=== PATIENT | female | born 1960 | race Caucasian/White ===

== ENCOUNTER 2020-01-30 05:25 | Emergency (ER) | payer OTHER ==
[2020-01-30 06:56] LABS: Basophils % 0.3 % (0-1.3); Hematocrit 45.7 % (36.0-45.0); Lymphocytes % 5.9 % (15.3-44.8); MPV 9.2 fL (7.6-11.3); RBC Red Blood Cell Count 4.76 M/uL (3.86-4.86)
[2020-01-30 07:21] LABS: ALT/SGPT 32 U/L (12-78); AST/SGOT 25 U/L (15-37); Albumin 3.9 g/dL (3.4-5.0); Alkaline Phosphatase 115 U/L (45-117); BUN Blood Urea Nitrogen 14 mg/dL (7-18); Bicarbonate 26 mmol/L (21-32); Bilirubin Direct < 0.1 mg/dL (0-0.2); Bilirubin Total 0.4 mg/dL (0.2-1.0); Glucose Level 110 mg/dL (74-106); Magnesium 2.3 mg/dL (1.8-2.4); NT PRO-BNP 51 pg/mL (<125); Potassium 3.6 mmol/L (3.5-5.1); Protein, Total 7.5 g/dL (6.4-8.2); Sodium Level 140 mmol/L (136-145); Troponin (Emerg Dept Use Only) < 0.02 ng/mL (0.0-0.045)
[2020-01-30 07:53] LABS: Protime INR 0.94
--- NOTE | 2020-01-30 08:18 | RAD REPORT ---
EXAM DESCRIPTION: CT - Abdomen Pelvis W Contrast - 01/30/2020 7:48 am CLINICAL HISTORY: ABD PAIN COMPARISON: No comparisons TECHNIQUE: Biphasic, helical CT imaging of the abdomen and pelvis was performed following 100 ml non -ionic IV contrast. No oral contrast given. All CT scans are performed using dose optimization technique as appropriate and may include automated exposure control or mA/KV adjustment according to patient size. FINDINGS: No suspicious findings in the lung bases. The liver, spleen, and pancreas show no suspicious findings. Two small 6 mm gallstones are present. N o active gallbladder process seen. No duct stone or biliary tree dilatation. Symmetric renal function is seen with no hydronephrosis or suspicious renal mass. No pyelonephritis o r acute parenchymal process. No bladder abnormalities. No adrenal abnormalities. Uterus and ovaries s how no suspicious findings. No dilated bowel loops or bowel wall thickening. Left-sided colonic diverticulosis is minimal. No radha dence for appendicitis. No free air, free fluid or inflammatory stranding. No hernia, mass or bulky lymphadenopathy. No suspicious bony findings. IMPRESSION: Contrast enhanced CT abdomen and pelvis showing no acute or emergent finding finding. Cholelithiasis without active gallbladder or biliary tree finding.
--- NOTE | 2020-01-30 08:31 | EDPHYS ---
Physician Documentation [facility] Name: Sanjuana Millan Age: 59 yrs Sex: Female : 1960 Arrival Date: 01/30/2020 Time: 05:26 Bed 20 Private MD: ED Physician Antony Perry HPI: 01/29 06:29 This 59 yrs old Female presents to ER via EMS with complaints of Dizziness, kb diarrhea. 06:30 The patient presents to the emergency department with diarrhea, abdominal pain. Onset: kb The symptoms/episode began/occurred this morning. Possible causes: ate wheat. The symptoms are aggravated by nothing. The symptoms are alleviated by nothing. Associated signs and symptoms: Pertinent positives: abdominal pain, diarrhea, dizziness, weakness. Severity of symptoms: At their worst the symptoms were moderate in the emergency department the symptoms have improved markedly. The patient has not experienced similar symptoms in the past. The patient has not recently seen a physician. Pt reports she ate wheat last night, which she normally doesn't do because she has a reaction to it, and then she felt a knot in her stomach. She got up from bed to use the restroom and felt dizzy, had an episode of diarrhea and felt weak. States she is feeling better now, denies dizziness. States "I feel stronger now and my stomach only feels like a little knot now." . Historical: - Allergies: 05:39 Wheat/glutens; bb - Home Meds: 05:39 None [Active]; bb - PMHx: 05:39 Celiac's Disease; bb - PSHx: 05:39 oophorectomy; Tonsillectomy; bb - Immunization history:: Adult Immunizations up to date. - Social history:: Smoking status: Patient denies any tobacco usage or history of. Patient uses alcohol, occasionally. Patient/guardian denies using street drugs. ROS: 06:28 Constitutional: Negative for fever, chills, and weight loss, Cardiovascular: Negative kb for chest pain, palpitations, and edema, Respiratory: Negative for shortness of breath, cough, wheezing, and pleuritic chest pain, Back: Negative for injury and pain, : Negative for injury, bleeding, discharge, and swelling, MS/Extremity: Negative for injury and deformity, Skin: Negative for injury, rash, and discoloration. 06:28 Abdomen/GI: Positive for abdominal pain, diarrhea, Negative for nausea and vomiting. 06:28 Neuro: Positive for dizziness, weakness. Exam: 06:28 Constitutional: This is a well developed, well nourished patient who is awake, alert, kb and in no acute distress. Head/Face: Normocephalic, atraumatic. Chest/axilla: Normal chest wall appearance and motion. Nontender with no deformity. No lesions are appreciated. Cardiovascular: Regular rate and rhythm with a normal S1 and S2. No gallops, murmurs, or rubs. Normal PMI, no JVD. No pulse deficits. Respiratory: Lungs have equal breath sounds bilaterally, clear to auscultation and percussion. No rales, rhonchi or wheezes noted. No increased work of breathing, no retractions or nasal flaring. Abdomen/GI: Soft, non-tender, with normal bowel sounds. No distension or tympany. No guarding or rebound. No evidence of tenderness throughout. Skin: Warm, dry with normal turgor. Normal color with no rashes, no lesions, and no evidence of cellulitis. MS/ Extremity: Pulses equal, no cyanosis. Neurovascular intact. Full, normal range of motion. Neuro: Awake and alert, GCS 15, oriented to person, place, time, and situation. Cranial nerves II-XII grossly intact. Motor strength 5/5 in all extremities. Sensory grossly intact. Cerebellar exam normal. Normal gait. Vital Signs: 05:30 BP 140 / 85; Pulse 79; Resp 14; Temp 97.4; Pulse Ox 96% ; Pain 0/10; fu 05:36 BP 128 / 83; Pulse 78; Resp 14 S; Temp 98.2(O); Pulse Ox 96% on R/A; Weight 72.57 kg bb (R); Height 5 ft. 2 in. (157.48 cm) (R); Pain 0/10; 07:30 BP 157 / 98; Pulse 84; Resp 18; Pulse Ox 100% on R/A; em 05:36 Body Mass Index 29.26 (72.57 kg, 157.48 cm) bb MDM: 06:04 Patient medically screened. kb 06:29 Data reviewed: vital signs, nurses notes. Data interpreted: Pulse oximetry: on room air kb is 96 %. Interpretation: normal. 08:27 Counseling: I had a detailed discussion with the patient and/or guardian regarding: the kb historical points, exam findings, and any diagnostic results supporting the discharge/admit diagnosis, lab results, radiology results, the need for outpatient follow up, a family practitioner, to return to the emergency department if symptoms worsen or persist or if there are any questions or concerns that arise at home. 08:29 ED course: Pt reports she is feeling better. kb 01/29 06:18 Order name: Basic Metabolic Panel; Complete Time: 07:22 kb 01/29 06:18 Order name: CBC with Diff kb 01/29 06:18 Order name: LFT's; Complete Time: 07:22 kb 01/29 06:18 Order name: Magnesium; Complete Time: 07:22 kb 01/29 06:18 Order name: NT PRO-BNP; Complete Time: 07:22 kb 01/29 06:18 Order name: PT-INR; Complete Time: 07:55 kb 01/29 06:18 Order name: Troponin (emerg Dept Use Only); Complete Time: 07:22 kb 01/29 06:18 Order name: EKG; Complete Time: 06:46 kb 01/29 06:18 Order name: Cardiac monitoring; Complete Time: 06:19 kb 01/29 06:18 Order name: EKG - Nurse/Tech; Complete Time: 06:19 kb 01/29 06:18 Order name: IV Saline Lock; Complete Time: 06:38 kb 01/29 06:18 Order name: Labs collected and sent; Complete Time: 06:38 kb 01/29 06:18 Order name: O2 Per Protocol; Complete Time: 06:20 kb 01/29 07:12 Order name: CT Abd/Pelvis - IV Contrast Only; Complete Time: 08:24 kb 01/29 06:18 Order name: O2 Sat Monitoring; Complete Time: 06:20 kb 01/29 07:03 Order name: Labs - recollect needed: recollect blue top. not filled; Complete Time: bd 07:27 Administered Medications: No medications were administered Disposition: 01/30/20 08:30 Discharged to Home. Impression: Diarrhea, unspecified, Dizziness and giddiness - resolved. - Condition is Stable. - Discharge Instructions: Diarrhea, Adult, [id number], Dizziness, [id number]. - Medication Reconciliation Form, Thank You Letter, Antibiotic Education, Prescription Opioid Use form. - Follow up: Emergency Department; When: As needed; Reason: Worsening of condition. Follow up: Private Physician; When: 2 - 3 days; Reason: Recheck today's complaints, Continuance of care, Re-evaluation by your physician. Signatures: Dispatcher [employer] EDMS JeovannyLeftyMaryellen, INSPECTOR WEIGHTS AND MEASURES-C INSPECTOR WEIGHTS AND MEASURES-Ckb Erin Loaiza Brenda, RN RN bb Baxter, Heather, RN RN hb Corrections: (The following items were deleted from the chart) 08:43 08:30 01/30/2020 08:30 Discharged to Home. Impression: Diarrhea, unspecified; Dizziness hb and giddiness - resolved. Condition is Stable. Forms are Medication Reconciliation Form, Thank You Letter, Antibiotic Education, Prescription Opioid Use. Follow up: Emergency Department; When: As needed; Reason: Worsening of condition. Follow up: Private Physician; When: 2 - 3 days; Reason: Recheck today's complaints, Continuance of care, Re-evaluation by your physician. kb
--- NOTE | 2020-01-30 08:31 | ER ---
Nurse's Notes [facility] Name: Sanjuana Millan Age: 59 yrs Sex: Female : 1960 Arrival Date: 01/30/2020 Time: 05:26 Bed 20 Private MD: Diagnosis: Diarrhea, unspecified;Dizziness and giddiness-resolved Presentation: 01/29 05:36 Chief complaint: EMS states: they were toned out for report of pt with dizziness, bb weakness and diarrhea. Coronavirus screen: At this time, the client does not indicate any symptoms associated with coronavirus-19. Ebola Screen: No symptoms or risks identified at this time. Initial Sepsis Screen: Does the patient meet any 2 criteria? No. Patient's initial sepsis screen is negative. Does the patient have a suspected source of infection? No. Patient's initial sepsis screen is negative. Risk Assessment: Do you want to hurt yourself or someone else? Patient reports no desire to harm self or others. Onset of symptoms was January 30, 2020. 05:36 Method Of Arrival: EMS: [facility] bb 05:36 Acuity: GIOVANNA 3 bb Triage Assessment: 05:39 General: Appears in no apparent distress. Behavior is calm, cooperative. Pain: Denies bb pain. Neuro: Level of Consciousness is awake, alert, obeys commands, Oriented to person, place, time, situation. Cardiovascular: No deficits noted. Respiratory: Respiratory effort is even, unlabored. Historical: - Allergies: 05:39 Wheat/glutens; bb - Home Meds: 05:39 None [Active]; bb - PMHx: 05:39 Celiac's Disease; bb - PSHx: 05:39 oophorectomy; Tonsillectomy; bb - Immunization history:: Adult Immunizations up to date. - Social history:: Smoking status: Patient denies any tobacco usage or history of. Patient uses alcohol, occasionally. Patient/guardian denies using street drugs. Screenin:53 Abuse screen: Denies threats or abuse. Nutritional screening: No deficits noted. fu Tuberculosis screening: No symptoms or risk factors identified. Fall Risk None identified. Assessment: 05:46 General: Appears in no apparent distress. Behavior is calm, cooperative, appropriate fu for age, Reports dizziness, weakness and diarrhea. Pain: Denies pain. Neuro: Level of Consciousness is awake, alert, obeys commands, Oriented to person, place, time, situation, Speech is normal, Facial symmetry appears normal. Cardiovascular: Denies chest pain, nausea, vomiting. Respiratory: Airway is patent Denies cough, shortness of breath. GI: Reports diarrhea, Patient currently denies nausea, vomiting. GI: patient stated she had history of Celiac disease. Derm: No signs and/or symptoms reported regarding the dermatologic system. Musculoskeletal: No signs and/or symptoms reported regarding the musculoskeletal system. 07:30 Reassessment: Patient appears in no apparent distress at this time. Patient and/or em family updated on plan of care and expected duration. Pain level reassessed. Patient is alert, oriented x 3, equal unlabored respirations, skin warm/dry/pink. Vital Signs: 05:30 BP 140 / 85; Pulse 79; Resp 14; Temp 97.4; Pulse Ox 96% ; Pain 0/10; fu 05:36 BP 128 / 83; Pulse 78; Resp 14 S; Temp 98.2(O); Pulse Ox 96% on R/A; Weight 72.57 kg bb (R); Height 5 ft. 2 in. (157.48 cm) (R); Pain 0/10; 07:30 BP 157 / 98; Pulse 84; Resp 18; Pulse Ox 100% on R/A; em 05:36 Body Mass Index 29.26 (72.57 kg, 157.48 cm) ED Course: 05:26 Patient arrived in ED. cl3 05:29 Sharad Shelby, RN is Primary Nurse. fu 05:37 Triage completed. bb 05:39 Arm band placed on Patient placed in an exam room, on a stretcher, on cardiac surgeon, bb on pulse oximetry. 05:51 No provider procedures requiring assistance completed. fu 06:04 Maryellen Up FNP-C is PHCP. kb 06:04 Antony Perry MD is Attending Physician. kb 06:30 Patient has correct armband on for positive identification. Bed in low position. Call fu light in reach. Side rails up X 1. 06:45 Inserted saline lock: 20 gauge in left hand, using aseptic technique. Blood collected. fu 06:53 Basic Metabolic Panel Sent. fu 06:53 CBC with Diff Sent. fu 06:53 LFT's Sent. fu 06:53 Magnesium Sent. fu 06:53 NT PRO-BNP Sent. fu 06:53 PT-INR Sent. fu 06:53 Troponin (emerg Dept Use Only) Sent. fu 07:00 platform attendant on. Pulse ox on. NIBP on. fu 07:16 Report given to JERROD Oakley. fu 07:48 CT Abd/Pelvis - IV Contrast Only In Process Unspecified. EDMS 08:42 IV discontinued, intact, bleeding controlled, No redness/swelling at site. hb Administered Medications: No medications were administered Outcome: 08:30 Discharge ordered by . kb 08:42 Discharged to home ambulatory, with significant other. hb 08:42 Condition: stable 08:42 Discharge instructions given to patient, Instructed on discharge instructions, follow up and referral plans. Demonstrated understanding of instructions, follow-up care. 08:43 Patient left the ED. Signatures: Dispatcher [employer] EDMS Maryellen Up, HOURLY SALES STAFF-C HOURLY SALES STAFF-Adin Godinez RN RN Dawna Madsen RN RN bb Baxter, Heather, RN RN Sharad Shelby, Geeta Erazo RN cl3 Corrections: (The following items were deleted from the chart) 07:31 07:30 BP 185 / 67; Pulse 66bpm; Resp 18bpm; Pulse Ox 100% RA; em em
[2020-01-30 08:54] VITALS: TEMP 98.2
[2020-01-30 08:55] VITALS: BP 157/98; O2SAT 100
[2020-01-30 10:01] LABS: Platelet Estimate ADEQ; White Blood Cell Scan OK (OK)
[2020-01-30 10:02] LABS: Blood Morphology Comment NOT SEEN (NOT SEEN)
--- NOTE | 2020-01-30 12:16 | EKG ---
Test Date: 2020-01-30 Test Time: 05:50:11 [employer]ian Blind Tape Cutter: AMTT MEASUREMENT RESULTS: Intervals: Rate: 75 OK: 154 QRSD: 72 QT: 320 QTc: 357 [place]: P: 11 OK: 154 QRS: 29 T: 13 INTERPRETIVE STATEMENTS: Normal sinus rhythm Cannot rule out Anterior infarct, age undetermined Abnormal ECG Compared to ECG 07/17/2001 10:58:00 Myocardial infarct finding now present Electronically Signed On 01-30-20 12:15:01 CDT by Sohail Beverly
--- NOTE | 2020-01-31 12:06 | EKG ---
Test Date: 2020-01-30 Test Time: 05:51:02 Golf Course Designer: MATT MEASUREMENT RESULTS: Intervals: Rate: 76 MO: 152 QRSD: 76 QT: 392 QTc: 441 [place]: P: 9 MO: 152 QRS: 26 T: 15 INTERPRETIVE STATEMENTS: Normal sinus rhythm Cannot rule out Anterior infarct, age undetermined Abnormal ECG Compared to ECG 01/30/2020 05:50:11 No significant changes Electronically Signed On 01-31-20 12:01:44 CDT by Sohail Beverly
== END 2020-01-30 08:43 | disposition home or self-care (01) ==
LOC: ER 05:25
DX: R19.7 Diarrhea, unspecified (principal); Z91.018 Allergy to other foods
CPT/HCPCS: 93005 ×2; 85025; 80048; 36415; 83735; 85610; 80076; 84484; 83880; 74177; Q9967; 99284